=== PATIENT | female | born 1965 | race Caucasian/White ===

== ENCOUNTER 2017-05-03 23:31 | Emergency (ER) | payer OTHER ==
[~2017-05-03] VITALS: Ht 160 cm; Wt 70.3 kg
[2017-05-04 00:14] VITALS: BP 101/59
[2017-05-04] MEDS ORDERED: LIDOCAINE 1% / SOD BICARB 8.4% 20 ML VIAL. IJ ONE (00:30)
[2017-05-04] MEDS ORDERED: DIPHTH,PERTUSS(ACELL),TET TOX 0.5 ML DISP.SYRIN. VAX IM ONE (00:30)
--- NOTE | 2017-05-04 01:00 | PHYS DOC ---
Past Medical History Past Medical History: Other Additional Past Medical Histor: CHRONIC BACK PAIN Past Surgical History: , Tonsillectomy, Other Additional Past Surgical Histo: R ANKLE, CERVICAL DISCECTOMY, Alcohol Use: Heavy Drug Use: None Adult General Chief Complaint Chief Complaint: MECHANICAL FALL HPI HPI Patient is a 51 year old female who presents here today secondary to a laceration to her left presybeterian after falling the shower today. Patient portion of the history of hypertension. No diabetes liver longer kidney pals. Patient had 2 C-sections. Patient reports she smokes and drinks. Patient reports she had a couple vodka tonics prior to her fall. Patient denies any street drugs. Patient is allergic to penicillin. Patient's tetanus status is unclear. Patient reports she thinks is been greater than 5 years. Patient denies any loss of consciousness. Patient has a nausea vomiting or neck pain. Patient has any chest pain shortness of breath cough cold runny nose. Patient denies any syncope. Patient reports that she was in the shower to shave her legs when she lost balance and fell down and hit her head against the railing. Patient's ER physical exam is significant for a 3 some a laceration to her left presybeterian. Patient has no C-spine T-spine or L-spine tenderness. Patient's joints were all range of motion. Patient is a bleeding without any discomfort. Assessment and plan this is a 51-year-old female who presents to the ER today with a laceration to her left presybeterian. Patient is given a tetanus status. Patient was given TD 0.5 IM Using clean and sterile fashion wound was prepped and draped and cleansed with Betadine and irrigated with saline. 3 mL of buffered lidocaine were utilized inflated to skin with appropriate anesthesia. 5 times 5. 0 Ethilon sutures simple interrupted were placed. Review of Systems Review of Systems Constitutional: Denies fever or chills [] Eyes: Denies change in visual acuity, redness, or eye pain [] HENT: Denies nasal congestion or sore throat [] Respiratory: Denies cough or shortness of breath [] Current Medications Current Medications Current Medications Medications (Trade) Dose Ordered Sig/Eliza Start Time Stop Time Status Last Admin Dose Admin Diphtheria/ Tetanus/Acell Pertussis (Boostrix) 0.5 ml ONCE ONCE 05/04/17 00:30 05/04/17 00:31 DC 05/04/17 00:51 0.5 ML Lidocaine/Sodium Bicarbonate (Buffered Lidocaine 1%) 20 ml 1X ONCE 05/04/17 00:30 05/04/17 00:31 DC 05/04/17 00:50 20 ML Allergies Allergies Allergies Coded Allergies Type Severity Reaction Last Updated Verified Penicillins Allergy Unknown 05/04/17 Yes Physical Exam Physical Exam Review of systems Eyes: Denies change in visual acuity, redness, or eye pain HENT: Denies nasal congestion or sore throat Respiratory: Denies cough or shortness of breath Physical exam Constitutional: Well developed, well nourished, no acute distress, non-toxic appearance. HENT: Normocephalic, 3 cm laceration left presybeterian, bilateral external ears normal , oropharynx moist, no oral exudates, nose normal. Eyes: PERRLA, EOMI, conjunctiva normal, no discharge. Neck: Normal range of motion, no tenderness, supple, no stridor. Cardiovascular:Heart rate regular rhythm, Lungs & Thorax: Bilateral breath sounds clear to auscultation Abdomen: Bowel sounds normal, soft, no tenderness, no masses, no pulsatile masses. Skin: Warm, dry, no erythema, no rash. Back: No tenderness, no CVA tenderness. Extremities: No tenderness, no cyanosis, no clubbing, ROM intact, no edema. Neurologic: Alert and oriented X 3, normal motor function, normal sensory function, no focal deficits noted. Psychologic: Affect normal, judgement normal, mood normal. Current Patient Data Vital Signs Vital Signs Date Time Temp Pulse Resp B/P (MAP) Pulse Ox O2 Delivery O2 Flow Rate FiO2 05/04/17 00:14 98.1 68 17 93 Room Air 98.1 EKG EKG [] Radiology/Procedures Radiology/Procedures [] Course & Med Decision Making Course & Med Decision Making Pertinent Labs and Imaging studies reviewed. (See chart for details) [] Dragon Disclaimer Dragon Disclaimer This electronic medical record was generated, in whole or in part, using a voice recognition dictation system. Departure Departure Impression: Primary Impression: Head trauma Additional Impression: Laceration of presybeterian Disposition: 01 HOME, SELF-CARE Condition: IMPROVED Referrals: MARY RODRIGUEZ (PCP) Patient Instructions: Diphtheria Toxoid; Tetanus Toxoid Adsorbed, DT, Td, Facial Laceration Additional Instructions: Wound check in 2 days. Sutures out in 5-7 days. Problem Qualifiers KAROL KNIGHT MD May 04, 2017 01:00
== END 2017-05-04 01:05 | disposition home or self-care (01) ==
LOC: ER 23:31
DX: S01.81XA Laceration without foreign body of other part of head, initial encounter (principal); G89.29 Other chronic pain; F10.10 Alcohol abuse, uncomplicated; Z88.0 Allergy status to penicillin; W18.2XXA Fall in (into) shower or empty bathtub, initial encounter; Y93.89 Activity, other specified; Y99.8 Other external cause status; Y92.89 Other specified places as the place of occurrence of the external cause
CPT/HCPCS: 90471; 90715; 99283-25